=== PATIENT | female | born 1985 | race Caucasian/White ===

== ENCOUNTER 2018-05-19 22:19 | Inpatient (IN) | payer MEDICAID, OTHER ==
[~2018-05-19] VITALS: Ht 162.6 cm; Wt 51.7 kg
[~2018-05-19 22:19] MED LIST: NO REPORTED MEDS
[2018-05-19 23:27] LABS: APPEARANCE,URINE CLOUDY (CLEAR); BILIRUBIN,URINE 2+ (NEGATIVE); BLOOD, URINE 1+ Ery/uL (NEGATIVE); COLOR,URINE DARK YELLO (YELLOW); KETONES,URINE NEGATIVE (NEGATIVE); LEUKOCYTE ESTERASE ,URINE NEGATIVE (NEGATIVE); NITRITE, URINE NEGATIVE (NEGATIVE); PROTEIN,URINE 3+ mg/dl (NEGATIVE); UGLUCOSE NEGATIVE (NEGATIVE)
[2018-05-19 23:37] LABS: BACTERIA,URINE Many /HPF (None Seen); SQUAMOUS EPITHELIAL CELL,UR Few /HPF (None Seen)
--- NOTE | 2018-05-20 01:10 | NUR ---
PT AA/OX 4 COMPLAINING OF SOB. SECONDARY TO BILATERAL LEG SWELLING X 1 WEEK. "I HAVE CHF AND SOMONE STOLE MY MEDICATIONS." NO TRIPODING OR NASAL FLARING PRESENT. WHEEZES PRESENT BILATERAL UPPER LOBES. SKIN RED, WARM, DRY. AMBULATED TO HOSPITAL BED WITH STEADY GAIT. WILL CONTINUE TO MONITOR. AWAITING MD ORDERS, PAM.
--- NOTE | 2018-05-20 01:58 | NUR ---
AND XRAY AT BEDSIDE.
[2018-05-20] MEDS ORDERED: NITROGLYCERIN 0.4 MG/TAB BOTTLE SL ONE (02:00)
[2018-05-20] MEDS ORDERED: CLONIDINE HCL 0.1 MG TABLET PO ONE (02:00)
[2018-05-20] MEDS ORDERED: NITROGLYCERIN PACKET 1 GM PACKET TD ONE (02:00)
[2018-05-20] MEDS ORDERED: ASPIRIN 81 MG TAB.CHEW PO ONE (02:00)
[2018-05-20] MEDS ORDERED: ASPIRIN EC 81 MG TABLET.DR PO ONE (02:32)
[2018-05-20] MEDS ORDERED: CLONIDINE HCL 0.1 MG TABLET ONE (02:33)
[2018-05-20] MEDS ORDERED: NITROGLYCERIN 0.4 MG/TAB BOTTLE ONE (02:33)
[2018-05-20] MEDS ORDERED: NITROGLYCERIN PACKET 1 GM PACKET ONE (02:33)
--- NOTE | 2018-05-20 03:10 | NUR ---
PT RESTING COMFORTABLY IN BED. EASILY AROUSED. VSS. NAD.
[2018-05-20 03:13] LABS: NEUTROPHILS # (AUTO) 4.5 /CMM (1.8-8.9)
[2018-05-20 03:23] LABS: CALCIUM, SERUM 8.5 mg/dL (8.5-10.1); CARBON DIOXIDE 22 mmol/L (21-32); CHLORIDE 103 mmol/L (98-107); CREATININE 0.8 mg/dL (0.6-1.3); GLUCOSE 113 mg/dL (74-106); SODIUM SERUM 135 mmol/L (136-145); UREA NITROGEN, BLOOD 18 mg/dL (7-18)
[2018-05-20 03:27] LABS: BASOPHILS % (AUTO) 0.4 % (0.0-2.0); EOSINOPHILS % (AUTO) 0.4 % (0.0-6.0); HEMATOCRIT 46 % (33-45); HEMOGLOBIN 14.4 g/dL (11.5-14.8); LYMPHOCYTES # (AUTO) 3.9 /CMM (0.8-4.8); LYMPHOCYTES % (AUTO) 44.1 % (20.0-44.0); MEAN CORPUSCULAR HEMOGLOBIN 25 PG (26.0-33.0); MEAN CORPUSCULAR HGB CONC 32 g/dl (31.0-36.0); MEAN CORPUSCULAR VOLUME 80 fL (82-100); MONOCYTES # (AUTO) 0.4 /CMM (0.1-1.30); MONOCYTES % (AUTO) 4.6 % (2.0-12.0); NEUTROPHILS % (AUTO) 50.5 % (43.0-81.0); PLATELET COUNT (AUTO) 179 /CMM (150-450); RDW COEFFICIENT OF VARIATION 20.3 (11.5-15.0); RED BLOOD CELL COUNT(AUTO) 5.73 MIL/uL (4.0-5.2); WHITE BLOOD COUNT (AUTO) 8.9 K/uL (4.3-11.0)
[2018-05-20 03:31] LABS: TROPONIN I < 0.017 ng/mL (0.00-0.056)
[2018-05-20 03:36] LABS: ALANINE AMINOTRANSFERASE 54 U/L (12-78); ALBUMIN 2.3 g/dL (3.4-5.0); ALKALINE PHOSPHATASE 94 U/L (46-116); ASPARTATE AMINOTRANSFERASE 63 U/L (15-37); B-TYPE NATRIURETIC PEPTIDE 5073 PG/ML (0-125); BILIRUBIN,DIRECT 0.4 mg/dL (0.0-0.2); BILIRUBIN,TOTAL 1.3 mg/dL (0.2-1.0); TOTAL PROTEIN, SERUM 6.9 g/dL (6.4-8.2)
[2018-05-20] MEDS ORDERED: FURO-145 PO (05:28)
--- NOTE | 2018-05-20 05:28 | NUR ---
RECEIVED AUTH FROM RICK BUCHANAN CRANK [employer]. [id number]
--- NOTE | 2018-05-20 05:56 | NUR ---
REPORT GIVEN TO SHWETHA LLANES
--- NOTE | 2018-05-20 06:00 | NUR ---
PT TRANSP. STABLE CONDITION. VSS. NAD.
[2018-05-20 06:30] VITALS: BP 148/104
--- NOTE | 2018-05-20 06:58 | NUR ---
MS/RN PATIENT WAS RECEIVED BY MAIKEL LLANES FROM [facility]. PATIENT AT THIS TIME IS SLEEPING, EASILY AROUSABLE, APPEAR COMFORTABLE, NO SIGNS OF DISTRESS NOTED, SR 88 IN TELE MONITOR. INFORMED PATIENT OF NPO STATUS UNTIL SEEN BY THE HAND PACKAGER, VERBALIZED UNDERSTANDING. WILL ENDORSE TO NEXT RN FOR ADMISSION.
--- NOTE | 2018-05-20 07:10 | NUR ---
METAL REFINER NOTES RECEIVED PT. PT ARRIVED ON UNIT SLIGHTLY BEFORE 0700. PT IS IN BED AWAKE AND RESTING. BREATHING EVEN, LABORED WITH SHALLOW DEPTH. O2 SAT WNL, HOB RAISED >45 DEGREES. A/OX4. PT DENIES PRESENCES OF CHEST PAIN AT THIS TIME. NITRO PATCH NOTED ON LEFT UPPER CHEST WALL. WOUNDS NOTED ON LEFT ELBOW AND LEFT FOOT GREAT TOE. FACILITY SPECIALIST UNABLE TO SECURE IV ACCESS, [facility]LINE WAS ORDERED, MD RANDALL AWARE. 2D ECHO ORDERED.CT PULMONARY ANGIO ORDERED, HOWEVER PT REQUIRES [facility] PRIOR TO CT.WILL F/U WITH MIDLINE NURSE. SAFETY MEASURES IN PLACE, CALL LIGHT IN REACH. WILL CONTINUE TO MONITOR.
[2018-05-20 08:00] VITALS: BP 139/95
[2018-05-20] MEDS ORDERED: ACETAMINOPHEN 325 MG TABLET PO PRN (08:00)
[2018-05-20] MEDS ORDERED: HYDROCODONE/APAP 5/325MG 1 EACH TABLET PO PRN (08:00)
[2018-05-20] MEDS ORDERED: CEFTRIAXONE 1 G in IV D5W 50 ML IV SCH (09:00)
[2018-05-20 10:28] LABS: BASOPHILS % (AUTO) 0.3 % (0.0-2.0); HEMATOCRIT 44 % (33-45); HEMOGLOBIN 13.9 g/dL (11.5-14.8); LYMPHOCYTES % (AUTO) 42.3 % (20.0-44.0); MEAN CORPUSCULAR HEMOGLOBIN 25 PG (26.0-33.0); MEAN CORPUSCULAR HGB CONC 32 g/dl (31.0-36.0); MEAN CORPUSCULAR VOLUME 80 fL (82-100); MONOCYTES # (AUTO) 0.5 /CMM (0.1-1.30); MONOCYTES % (AUTO) 5.8 % (2.0-12.0); NEUTROPHILS # (AUTO) 4.8 /CMM (1.8-8.9); NEUTROPHILS % (AUTO) 50.6 % (43.0-81.0); PLATELET COUNT (AUTO) 278 /CMM (150-450); RDW COEFFICIENT OF VARIATION 21.2 (11.5-15.0); RED BLOOD CELL COUNT(AUTO) 5.52 MIL/uL (4.0-5.2); WHITE BLOOD COUNT (AUTO) 9.4 K/uL (4.3-11.0)
[2018-05-20 10:47] LABS: ALBUMIN 2.2 g/dL (3.4-5.0); BILIRUBIN,TOTAL 1.3 mg/dL (0.2-1.0); CALCIUM, SERUM 8.7 mg/dL (8.5-10.1); CREATININE 0.7 mg/dL (0.6-1.3); MAGNESIUM 1.7 mg/dL (1.8-2.4); PHOSPHORUS 4.2 mg/dL (2.5-4.9); POTASSIUM 4.6 mmol/L (3.5-5.1); TOTAL PROTEIN, SERUM 6.6 g/dL (6.4-8.2)
[2018-05-20 10:54] LABS: THYROID STIMULATING HORMONE 1.772 uIU/mL (0.358-3.74)
[2018-05-20] MEDS ORDERED: RIVAROXABAN 10 MG TABLET PO SCH ×2 (17:00)
--- NOTE | 2018-05-20 18:27 | NUR ---
RN CLOSING NOTES PT RETURNED FROM VQ SCAN. TO BE TRANSFERRED TO [facility] ONCE RESULTED. PT IN BED RESTING. A/OX4. NO S/S OF RESP DISTRESS. 2D ECHO FOUND RIGHT PA PRESSURE ELEVATED AT 133. PULMONARY MD CONSULT BELIEVES PT IS IN NEED OF TRANSPLANT HEART/LUNG, HOWEVER IS MOST LIKELY NOT A CANDIDATE. RECOMMENDING SPECIALIZED PULMONARY UNIT. PER MD HOSPITALIST TONIA, PT TO BE TRANSFERRED TO [facility]. TRANSFER IS PENDING VQ SCAN. ONCE SCAN HAS RESULTED, RN TO CONTACT CHARGE NURSE OF [facility] 2ND FLOOR UNIT ( [phone] ). STERILIZATION SPECIALIST FROM [facility] (MARQUES: [phone]) REQUESTS THAT SHE BE CONTACTED ONCE RESULTS ARE IN TO INITIATE TRANSFER. PATIENT WILL BE TRANSFERRED TO [facility]LO[facility], ROOM 206A. SAFETY MEASURES IN PLACE, CALL LIGHT WITHIN REACH. WILL ENDORSE TO COMMUNITY DEVELOPMENT COORDINATOR FOR [facility]Y.
[2018-05-20 20:00] VITALS: BP 134/90
--- NOTE | 2018-05-20 20:00 | NUR ---
MS VACUUM FILTER OPERATOR INITIAL NOTES RECEIVED REPORT FROM AM NURSE RACHELL AND CHECKED THE PATIENT, SHE'S AWAKE AND ALERT , NOT IN ANY ACUTE DISTRESS NOTED, ASKING FOR SOME JUICE BLANKING PRESS OPERATOR ROMEO GAVE SOME. SHE'S AWARE THAT SHE WILL BE TRANSFERRING TO [facility]. DISCHARGE INSTRUCTION GIVEN AND SHE UNDERSTOOD WELL. SHE REFUSED TO HAVE CLEAN UP AND CHECK HER BELONGING WELL TAKING PHOTO OF HER SKIN. CALLED [facility] AND SPOKE TO MARQUES AND SHE TOLD ME THEY ARE THE ONE PREPARING FOR THE TRANSFORT. CALLED [facility] TO GIVE REPORT AND SPOKE TO NURIS /NURSE WHO'S GETTING THE PATIENT. PATIENT GOING TO ROOM 206 BED A. COPY OF THE CHART READY . WAITING FOR THE AMBULANCE. WILL CONTINUE MONITORING THE PATIENT WELL.
--- NOTE | 2018-05-20 21:17 | NUR ---
CDL TRUCK DRIVER/NOTES CALLED THE [facility] TO FOLLOW UP REGARDING THE AMBULANCE THAT WILL GLOBAL ACCOUNT EXECUTIVE THE PT AND SPOKE TO JONO/CUT PRESSMAN AND SHE TOLD ME THAT SHE GOT ENDORSEMENT POSSIBLE 90 MINUTES SINCE 0730PM BUT SHE WILL CALL AGAIN. PT STILL IN HER ROOM RESTING NO SIGNS OF ANY ACUTE DISTRESS NOTED. WILL CONTINUE MONITORING.
--- NOTE | 2018-05-20 22:12 | NUR ---
MS PLASTICS HEAT WELDER CLOSING NOTES PT AWAKE AND ALERT ELECTRONIC WARFARE LINGUIST CAME TO ULTRASOUND TECHNICIAN THE PT. SHE'S AWAKE AND ALERT DENIES ANY PAIN OR ANY DISCOMFORT. NO SIGNS OF ANY ACUTE DISTRESS NOTED. PT REQUESTED TO HAVE CRACKERS , JUICE AND JELO. GAVE SOME AND PATIENT STATED "THANK YOU ". [facility]LINE STILL INTACT. GAVE REPORT AND COPY OF THE CHART GAVE IT TO THE ELECTRONIC WARFARE LINGUIST STAFF. PT DISCHARGE TO [facility] FOR CONTINUITY OF CARE.
== END 2018-05-20 22:00 | disposition short-term general hospital (02) | DRG 203 ==
LOC: ER 22:21 → TELE 05-20 05:35 → MED 05-20 11:20
PROVIDERS: ADMIT Internal Medicine; ATTEND Internal Medicine
PROC: B547ZZA Ultrasonography of Left Subclavian Vein, Guidance (ICD-10-PCS; principal; 2018-05-20)
PROC: 05H633Z Insertion of Infusion Device into Left Subclavian Vein, Percutaneous Approach (ICD-10-PCS; principal; 2018-05-20)
DX: M94.0 Chondrocostal junction syndrome [Tietze] (principal); I27.20 Pulmonary hypertension, unspecified; N39.0 Urinary tract infection, site not specified; M41.85 Other forms of scoliosis, thoracolumbar region; J45.909 Unspecified asthma, uncomplicated; F17.200 Nicotine dependence, unspecified, uncomplicated; R74.0 Nonspecific elevation of levels of transaminase and lactic acid dehydrogenase [LDH]; F11.10 Opioid abuse, uncomplicated; B96.20 Unspecified Escherichia coli [E. coli] as the cause of diseases classified elsewhere; Z16.12 Extended spectrum beta lactamase (ESBL) resistance; Z59.0 Homelessness
CPT/HCPCS: 36415; 36569; 71045-TC; 76700-TC; 78582; 80048-TC; 80053-TC; 80061-TC; 80076-TC; 81000-TC; 83735-TC; 83880; 84100-TC; 84443-TC; 84484-TC; 84703-TC; 85025-TC; 85378-TC; 87081-TC; 87086-TC; 87186-TC; 93307-TC; A4606; A9540; A9567; J0696; J7060; Z7610